=== PATIENT | male | born 1955 | race Caucasian/White ===

== ENCOUNTER 2016-07-19 11:26 | Day surgery (SDC) | payer BC ==
[2016-07-13 16:51] LABS: HEMOGLOBIN 16.1 g/dL (13.6-17.8)
[2016-07-13 17:10] LABS: BUN (BLOOD UREA NITROGEN) 9 MG/DL (6-23); CALCIUM, SERUM 9.2 MG/DL (8.5-10.4); CHLORIDE, SERUM 107 MMOL/L (96-112); CO2 (CARBON DIOXIDE) 26 MMOL/L (24-34); GFR AFRICAN AMERICAN 111 ML/MIN (>=60); GFR NON AFRICAN AMERICAN 96 ML/MIN (>=60); POTASSIUM, SERUM 4.3 MMOL/L (3.5-5.3); SODIUM, SERUM 141 MMOL/L (135-148)
[2016-07-13 17:12] LABS: GLUCOSE, SERUM 97 MG/DL (60-99)
[2016-07-14 14:24] LABS: ALKALINE PHOSPHATASE 87 U/L (45-117); DIRECT BILIRUBIN < 0.1 MG/DL (0.0-0.4); INDIRECT BILIRUBIN(NOT ORDER) 0.2 MG/DL (0.1-0.9); SGOT(AST) 32 U/L (5-40); SGPT(ALT) 48 U/L (5-65); TOTAL BILIRUBIN 0.3 MG/DL (0-1.2)
--- NOTE | ~2016-07-19 | OP ---
Record Of Operation [facility] [address] [place]. [address] NAME: JUNE KWAN : 53 STATUS : [facility]#: [id number] AGE: 61 ADM/REG DATE : 07/19/16 MR#: [id number] REPORT SERV DATE: 07/19/16 DICTATED BY: ZANE GOODSON III DATE: 07/19/16 REPORT STATUS : Draft TRANSCRIBED BY: MODL DATE: 07/19/16 DATE OF PROCEDURE: 07/19/2016 PREOPERATIVE DIAGNOSIS: History of bladder cancer. POSTOPERATIVE DIAGNOSIS: Mildly erythematous patches at the dome. PROCEDURE: Cystoscopy and bladder biopsy. SURGEON: Zane Goodson M.D. ANESTHESIA: General. SPECIMEN: 1. Bladder biopsy, dome. 2. Bladder biopsy, right wall. INDICATION: Mr. Kwan is a 61-year-old white male, with history of T1 urothelial carcinoma. He has undergone several transurethral resections. There is rather difficult to get to his dome and requires the long resectoscope and a lot of abdominal pressure. He has undergone a six-week course of BCG and he provides consent for cystoscopy and bladder biopsy. PROCEDURE IN DETAIL: After consent was obtained, the patient was identified and was taken to the OR and put to sleep. He was positioned in the low lithotomy position and prepped and draped in usual fashion. The 22-Swedish cystoscope was made ready and advanced along the course of urethra into the bladder. There was kind of a wide caliber stricture in the bulbar urethra. The bladder was inspected, especially the dome, there were some erythematous areas, but no tumors were noted. The cold cup biopsy forceps were used to obtain a biopsy from the dome and right wall. The biopsy sites were cauterized with a Bugbee. The bladder was then drained. Scope was removed. The patient was awakened and taken to recovery in stable condition. PH/MODL Zane Goodson III, M.D. / [id number] CC: Farrukh Johnston III, DO
[~2016-07-19 11:26] MED LIST: AMB10 PO; AUG BETAMET0.05 % EX; CHANTIX0.5 PO; CHANTIX1 PO; CIP5 PO; HYDROCHLOROT25 MG PO; LEVOTHYROXIN75 MCG PO; MOMETASONE0.11 EX; NORCO1 TA2 PO; OLYSIO PO; OTEZLA PO; SEROQUEL200 MG PO; SOVALDI PO; TRIAMCINOLONE O80 GM T; VIB100 PO; ZOCOR20 PO; ZOCOR40 PO
== END 2016-07-19 15:58 | disposition home or self-care (01) ==
LOC: SDC 11:26
PROVIDERS: Urology
PROC: 0TBB8ZX Excision of Bladder, Via Natural or Artificial Opening Endoscopic, Diagnostic (ICD-10-PCS; principal; 2016-07-19 12:45)
DX: N32.9 Bladder disorder, unspecified (principal); E78.00 Pure hypercholesterolemia, unspecified; E03.9 Hypothyroidism, unspecified; E66.9 Obesity, unspecified; Z68.36 Body mass index [BMI] 36.0-36.9, adult; K74.60 Unspecified cirrhosis of liver; M19.90 Unspecified osteoarthritis, unspecified site; L40.9 Psoriasis, unspecified; Z88.1 Allergy status to other antibiotic agents; Z88.5 Allergy status to narcotic agent; Z88.6 Allergy status to analgesic agent; Z87.891 Personal history of nicotine dependence; Z85.51 Personal history of malignant neoplasm of bladder; Z92.21 Personal history of antineoplastic chemotherapy; Z98.890 Other specified postprocedural states; Z79.899 Other long term (current) drug therapy
CPT/HCPCS: 80048; 80076; 85014; 85018; 88305; 88341; 88342; 93005; J0690; J2250; J2405; J2710; J3010